=== PATIENT | male | born 1955 | race Hispanic/Latino ===

== ENCOUNTER 2018-10-12 21:09 | Emergency (ER) | payer BC ==
[2018-10-12] MEDS ORDERED: Proparacaine 0.5% Opth 15 ML BOT ONE (21:18)
[2018-10-12] MEDS ORDERED: Fluorescein Opthalmic Strip ONE (21:18)
== END 2018-10-12 22:03 | disposition home or self-care (01) ==
LOC: SCSER 21:09
DX: T15.02XA Foreign body in cornea, left eye, initial encounter (principal); Z79.899 Other long term (current) drug therapy; Z79.84 Long term (current) use of oral hypoglycemic drugs; I10 Essential (primary) hypertension; W45.8XXA Other foreign body or object entering through skin, initial encounter
CPT/HCPCS: 65220